=== PATIENT | female | born 1965 | race African-American/Black ===

== ENCOUNTER 2016-09-24 05:33 | Day surgery (SDC) | payer OTHER ==
[2016-09-20 16:09] VITALS: BMI 30.9
[2016-09-24 08:37] VITALS: TEMP 97.8
[2016-09-24] MEDS ORDERED: PROMETHAZINE HCL 25 MG/1 ML VIAL IVPUSH PRN (10:51)
[2016-09-24] MEDS ORDERED: ONDANSETRON 4 MG/2 ML VIAL IVPUSH PRN (10:51)
[2016-09-24] MEDS ORDERED: oxyCODONE HCL 5 MG TABLET PO PRN (10:51)
[2016-09-24] MEDS ORDERED: MIDAZOLAM HCL 2 MG/2 ML SINGLE DOSE VIAL ONE (10:57)
[2016-09-24] MEDS ORDERED: LACTATED RINGERS SOLUTION 1,000 ML IV SCH (11:00)
[2016-09-24] MEDS ORDERED: DEXAMETHASONE SOD PHOSPHATE 4 MG/1 ML VIAL ONE (11:20)
[2016-09-24] MEDS ORDERED: KETOROLAC TROMETHAMINE 30 MG/1 ML VIAL ONE (11:20)
[2016-09-24] MEDS ORDERED: PROPOFOL 20 ML ONE (11:25)
[2016-09-24] MEDS ORDERED: LIDOCAINE HCL/PF 2% SDV 5ML VIAL ONE (11:26)
[2016-09-24] MEDS ORDERED: MICROFIBRILLAR COLLAGEN 1 GM EACH ONE (11:33)
[2016-09-24] MEDS ORDERED: ACETAMINOPHEN 325 MG TABLET (FP) PO PRN (12:52)
[2016-09-24] MEDS ORDERED: IBUPROFEN 400 MG TABLET (FP) PO PRN (12:52)
--- NOTE | 2016-09-24 12:56 | HP ---
History & Physical Update - History History: No Change - Physical Physical: No Change - Assessment Assessment: No Change - Plan Plan: No Change
--- NOTE | 2016-09-24 13:48 | OP ---
Operative Note - Note: Operative Date: 09/24/16 Pre-Operative Diagnosis: HPV. Cervical Dysplasia Operation: Leep cone Findings: Large Leep done Post-Operative Diagnosis: Same as Pre-op Surgeon: Suad Xiong Anesthesia: General Specimens Removed: Large ectocervix Leep. endocervical hat Estimated Blood Loss (mls): 350 Operative Report Dictated: Yes
[2016-09-24 15:19] VITALS: BP 132/76; PULSE 80
--- NOTE | 2016-09-25 09:19 | OP ---
DATE OF OPERATION: 09/24/2016 PREOPERATIVE DIAGNOSIS: Human papillomavirus infection, cervical dysplasia. POSTOPERATIVE DIAGNOSIS: Human papillomavirus infection, cervical dysplasia. OPERATION: LEEP (loop electrosurgical excision procedure)/cone. SURGEON: Suad Xiong MD ANESTHESIA: General. ANESTHESIOLOGIST: Yong Maldonado MD ESTIMATED BLOOD LOSS: 350 mL. PROCEDURE: Patient was taken to the operating room, placed in dorsal lithotomy position, prepped and draped in the usual sterile fashion. A time-out was performed in accordance with hospital regulations. A speculum was placed in the vagina, and cervix was then painted with Lugols solution. A large LEEP/cone was then performed and cone hat was then removed for endocervix. Cautery was then used for hemostasis. During cauterization, vagina was noted to have vaginal tear. Vicryl 0 suture was then used to stop the vaginal bleeding. Bleeding from the cone was also noted. Monsel was placed. A lot of cautery was then performed to maintain hemostasis as well s tamponade. After hemostasis had been done, more Monsel was then placed. Estimated blood loss was 350 mL due to the vaginal laceration as well as the cauterization of the LEEP. Patient had tolerated the procedure well. All instruments were then removed. Pack count was noted to be normal. Estimated blood loss again was 350 mL. SUAD XIONG M.D. [id number]
--- NOTE | 2016-09-25 13:23 | PATH ---
Surgical Pathology Report Patient Name: BRENT POWERS [facility]. Rec. #: [id number] /Age/Gender: 1965 (Age: 51) / F Account: [id number] Location: [facility] SUR[facility]ICAL Taken: 09/24/2016 Received: 09/24/2016 Reported: 09/25/2016 Physicians: Suad Xiong M.D. Specimen(s) Received LEEP CONE BIOPSY Clinical History HPV, cervical dysplasia Final Diagnosis CERVIX, LEEP CONE BIOPSY: CERVICAL SQUAMOUS AND ENDOCERVICAL MUCOSA WITH LOW GRADE SQUAMOUS INTRAEPITHELIAL LESION (SQUAMOUS INTRAEPITHELIAL NEOPLASIA 1/SAW 1), PRESENT IN 12-3:00 AND 3-6:00 QUADRANTS. SURGICAL RESECTION MARGINS: APPEAR NEGATIVE FOR DYSPLASIA. TRANSFORMATION ZONE: PRESENT. Electronically Signed Dre Lewis M.D. Gross Description Received in formalin labeled "LEEP cone biopsy" is a 2.3 cm in diameter annular portion of soft tissue, consistent with a cervical LEEP cone biopsy. There are no orienting sutures present. There is an undesignated kari in the specimen which is arbitrarily designated the 12:00 aspect. The specimen is surfaced by a tavarez pink mucosa. The specimen is inked green, serially sectioned and entirely and sequentially submitted in 4 cassettes as follows: 1-12:00 to 3:00; 2-3:00 to 6:00; 3-6:00 to 9:00; 4-9:00 to 12:00. /09/24/2016 saudi/09/24/2016
== END 2016-09-24 15:30 | disposition home or self-care (01) ==
LOC: JASU-SURG 05:33
PROVIDERS: ATTEND Obstetrics & Gynecology
PROC: 0UBC7ZX Excision of Cervix, Via Natural or Artificial Opening, Diagnostic (ICD-10-PCS; principal; 2016-09-24 10:30)
DX: N87.0 Mild cervical dysplasia (principal); A63.0 Anogenital (venereal) warts
CPT/HCPCS: 84703; 88307-TC; 94760

== ENCOUNTER 2017-10-30 08:28 | Day surgery (SDC) | payer OTHER ==
[2017-10-30 08:44] VITALS: BMI 31.6
[2017-10-30] MEDS ORDERED: VASOPRESSIN 20 UNITS/ML VIAL IV ONE (09:19)
[2017-10-30] MEDS ORDERED: DESFLURANE GAS 240 ML BOTTLE IH ONE (09:28)
[2017-10-30] MEDS ORDERED: PROPOFOL 20 ML ONE (09:58)
[2017-10-30] MEDS ORDERED: ROCURONIUM BROMIDE 50 MG/5 ML VIAL ONE (09:58)
[2017-10-30] MEDS ORDERED: MIDAZOLAM HCL 2 MG/2 ML SINGLE DOSE VIAL ONE (09:58)
[2017-10-30] MEDS ORDERED: LIDOCAINE HCL/PF 2% SDV 5ML VIAL ONE (10:00)
[2017-10-30] MEDS ORDERED: ACETAMINOPHEN 1000 MG/100 ML VIAL (NON FORMULARY) IVPB ONE ×2 (10:04→12:25)
[2017-10-30] MEDS ORDERED: ceFAZolin SODIUM 1 GM VIAL IVPB ONE (10:10)
[2017-10-30] MEDS ORDERED: IBUPROFEN 800 MG/8 ML IJ IVPB SCH (10:15)
[2017-10-30] MEDS ORDERED: DEXTROSE 5%-0.45% SALINE 1,000 ML IV SCH (10:15)
[2017-10-30] MEDS ORDERED: ceFAZolin SODIUM 1 GM VIAL ONE (10:15)
[2017-10-30] MEDS ORDERED: SODIUM CHLORIDE 0.9% P/F 10 ML VIAL IJ ONE (10:15)
[2017-10-30] MEDS ORDERED: ONDANSETRON 4 MG/2 ML VIAL ONE ×2 (10:18→12:46)
[2017-10-30] MEDS ORDERED: DEXAMETHASONE SOD PHOSPHATE 4 MG/1 ML VIAL ONE (10:18)
[2017-10-30] MEDS ORDERED: GLYCOPYRROLATE 0.2 MG/1 ML VIAL ONE (10:30)
[2017-10-30] MEDS ORDERED: NEOSTIGMINE METHYLSULFATE 0.5 MG/ML - 10 ML MDV ONE (10:30)
[2017-10-30] MEDS ORDERED: KETOROLAC TROMETHAMINE 30 MG/1 ML VIAL ONE (10:34)
[2017-10-30] MEDS ORDERED: METOPROLOL TARTRATE 5 MG/5 ML VIAL ONE (11:30)
[2017-10-30] MEDS ORDERED: ONDANSETRON 4 MG/2 ML VIAL IVPUSH PRN (11:39)
[2017-10-30] MEDS ORDERED: PROMETHAZINE HCL 25 MG/1 ML VIAL IVPUSH PRN (11:39)
[2017-10-30] MEDS ORDERED: LACTATED RINGERS SOLUTION 1,000 ML IV SCH (11:45)
[2017-10-30] MEDS ORDERED: ACETAMINOPHEN INJECTION 100 ML IVPB ONE (12:12)
[2017-10-30] MEDS ORDERED: ONDANSETRON 4 MG/2 ML VIAL IVPUSH ONE (13:00)
[2017-10-30] MEDS ORDERED: PROMETHAZINE HCL 25 MG/1 ML VIAL IVPUSH ONE (13:15)
[2017-10-30] MEDS ORDERED: PROMETHAZINE HCL 25 MG/1 ML VIAL ONE (13:17)
[2017-10-30 16:05] VITALS: BP 130/78; PULSE 77; TEMP 97.7
--- NOTE | 2017-10-31 18:02 | PATH ---
Surgical Pathology Report Patient Name: BRENT POWERS [facility]. Rec. #: [id number] /Age/Gender: 1965 (Age: 52) / F Account: [id number] Location: [facility] SURGICAL Taken: 10/30/2017 Received: 10/30/2017 Reported: 10/31/2017 Physicians: Rhett Brewer M.D. Specimen(s) Received PORTION OF VESICOVAGINAL FISTULA Clinical History Vesicovaginal fistula Final Diagnosis VESICOVAGINAL FISTULA, TISSUE, EXCISION: SMALL FRAGMENT OF SQUAMOUS MUCOSA WITHOUT SIGNIFICANT PATHOLOGIC FINDINGS. Electronically Signed Angela Lyle M.D. Gross Description Received in formalin, labeled "vesicovaginal fistula tissue" is a tavarez, irregular portion of soft tissue measuring 0.1 cm. in greatest dimension. The specimen is submitted in toto in one cassette. /10/31/2017 saudi/10/31/2017
--- NOTE | 2017-11-15 10:02 | OP ---
DATE OF OPERATION: 10/30/2017 PREOPERATIVE DIAGNOSIS: Vesicovaginal fistula. POSTOPERATIVE DIAGNOSIS: Vesicovaginal fistula. PROCEDURE: Transvaginal repair of a vesicovaginal fistula with cystoscopy. SURGEON: Rhett Brewer MD ESTIMATED BLOOD LOSS: Minimal. DRAINS: Johnson catheter. MATERIALS: Vaginal packing also left in place. PREOPERATIVE INDICATIONS: The patient has a vesicovaginal fistula just behind the trigone in the midline. She had undergone a LEEP procedure previously and subsequently developed urinary incontinence. It was determined that she had vaginal leaking and on cystoscopy in the office, the fistula was visualized. She comes today for repair. OPERATION: The patient was brought to the OR, placed on the table in supine position, given general anesthesia and IV antibiotics, and placed in the modified lithotomy position. The groin was prepped and draped sterilely. Cystoscopy was performed, and the rest of the bladder appeared to be intake. The area of the fistula was visualized. This was confirmed. A fingertip could be placed into the fistula. A 12-Telugu Johnson catheter was placed into the fistula from the vagina into the bladder, and the balloon was inflated. This allowed retraction of the fistula to allow for repair. The vaginal mucosa was injected with Pitressin around the area of the Johnson representing the fistula, and the vaginal mucosa was incised. The fistula itself was excised. The vaginal mucosa was then dissected away from the perivesical tissues. Using 2-0 Vicryl suture, 3 non-overlapping suture lines were placed to repair the fistula. At this point, the Johnson catheter that was in the fistula was removed. At this point, the cystoscopy was performed again, and there appeared to be repair of the defect. The bladder was filled, and no evidence of leakage was observed. Good hemostasis was maintained throughout. The Johnson catheter was replaced, and vaginal packing was placed. The patient was woken up. Tash [id number]
== END 2017-10-30 16:35 | disposition home or self-care (01) ==
LOC: JASU-SURG 08:28
PROVIDERS: ATTEND Urology
PROC: 0TBB0ZZ Excision of Bladder, Open Approach (ICD-10-PCS; 2017-10-30)
PROC: 0JBB0ZZ Excision of Perineum Subcutaneous Tissue and Fascia, Open Approach (ICD-10-PCS; principal; 2017-10-30 10:00)
DX: N82.8 Other female genital tract fistulae (principal)
CPT/HCPCS: 84703; 88304-TC; 94760; J0131